=== PATIENT | male | born 1985 | race Two or more races ===

== ENCOUNTER 2022-08-08 10:24 | Inpatient (IN) | payer OTHER ==
[~2022-08-08] VITALS: Ht 170.2 cm; Wt 69.9 kg
--- NOTE | 2022-08-08 11:14 | NUR ---
PACIENTE ALERTA Y ORIENTADO X3, EN COMPANIA DE FAMILIAR QUIEN REFIERE QUE HACE LIAM WARD SE ENTERRO UN ERIZO EN EL DEDO MEDIO DE LA AMNO DERECHA. SE OBSERVA LA MISMA ENJORECIDA E INFLAMADA. SE MONITOREAN VS Y SE UBICA EN [place]
--- NOTE | 2022-08-08 13:30 | NUR ---
SE LE ORIENTA A PACIENTE SOBRE LAS ORDENES MEDICAS, REFIERE ENTEDER LAS MISMAS. SE CANALIZA Y SE LE COLOCA S/L, SE LE KATIE LAS MUETRAS, SE LE REALIZA PLACA Y SE LE ADMINISTRAN LOS MEDICAMENTOS JAMEL LAS ORDENES MEDICAS.
== END 2022-08-15 14:47 | disposition home or self-care (01) | DRG 603 ==
LOC: ER 10:24 → MEDJ 20:27 → SEC-K 20:27 → MEDJ 08-09 15:41
PROVIDERS: Orthopaedic Surgery Hand Surgery; ADMIT Internal Medicine; ATTEND Internal Medicine
PROC: 0H9FXZZ Drainage of Right Hand Skin, External Approach (ICD-10-PCS; principal; 2022-08-11 07:00)
DX: L03.011 Cellulitis of right finger (principal); L02.511 Cutaneous abscess of right hand; M65.871 Other synovitis and tenosynovitis, right ankle and foot; E87.6 Hypokalemia; B95.61 Methicillin susceptible Staphylococcus aureus infection as the cause of diseases classified elsewhere; Z20.822 Contact with and (suspected) exposure to COVID-19

== ENCOUNTER → 2022-10-18 | Emergency (ER) | payer OTHER ==
[~2022-10-18] VITALS: Ht 170.2 cm; Wt 77.1 kg
== END | disposition left against medical advice (07) ==
LOC: ER 20:23
DX: T18.108A Unspecified foreign body in esophagus causing other injury, initial encounter (principal); X58.XXXA Exposure to other specified factors, initial encounter; Y93.9 Activity, unspecified; Y92.9 Unspecified place or not applicable; Y99.9 Unspecified external cause status